=== PATIENT | female | born 1945 | race Caucasian/White ===

== ENCOUNTER → 2016-10-05 | Day surgery (SDC) | payer OTHER ==
[~2016-10-05] MED LIST: ANCEF VIAL 1 GM ONE; BENADRYL INJ 50 MG VIAL IVP PRN; DILAUDID INJ IVP PRN; DIPRIVAN VIAL ONE; FENTANYL INJ 250 mcg ONE; LR 1000 ML IV 1,000 ML IV ONE; MARCAINE 0.25% WITH EPI IJ ONE; NEOSTIGMINE INJ ONE; NORCURON INJ 10 MG VIAL ONE; NORMODYNE INJ 100 MG VIAL ONE; NS 50 ML IV + SPIKE MINIBAG* 50 ML IV ONE; PERCOCET TAB 5/325 MG PO PRN; PHENERGAN INJ 25 MG IVP PRN; QUELICIN (OR ANECTINE) ONE; REGLAN INJ 10 MG VIAL IVP PRN; REGLAN INJ 10 MG VIAL ONE; ROBINUL ONE; SUPRANE IN ONE; VERSED ONE; XYLOCAINE 1 % (PLAIN) ONE; XYLOCAINE 2 % (PLAIN) ONE; ZOFRAN INJ 4 MG VIAL IVP PRN; ZOFRAN INJ 4 MG VIAL ONE
[2016-10-05 13:17] VITALS: BP 145/73
== END ==
LOC: SURG1 08:10
PROVIDERS: ATTEND Student in an Organized Health Care Education/Training Program
PROC: 0FT44ZZ Resection of Gallbladder, Percutaneous Endoscopic Approach (ICD-10-PCS; principal; 2016-10-05 09:40)
DX: K82.8 Other specified diseases of gallbladder (principal)
CPT/HCPCS: 99100; A4216; A4222; S0020; J0330; J0690; J2001; J2250; J2405; J2710; J2765; J3010; J3490; J7120

== ENCOUNTER → 2017-02-27 | Outpatient (CLI) | payer OTHER ==
[2016-10-05 13:17] VITALS: BP 145/73
[2017-02-27 09:40] LABS: CREATININE 0.92 mg/dL (0.55-1.02)
--- NOTE | 2017-02-28 07:50 | MRI ---
MRI BRAIN WITHOUT AND WITH CONTRAST CLINICAL HISTORY: 71-year-old female with headaches and family history of strokes. COMPARISON: None. TECHNIQUE: Multiplanar, multisequence MR images of the brain were obtained prior to and following th e uneventful intravenous administration of 14 mL Omniscan. FINDINGS: There is no evidence of diffusion restriction. The craniocervical junction is normal. Partially empty sella Pituitary and optic nerve complex are otherwise normal. Multifocal confluent and punctate T2 F LAIR signal hyperintensities are present within the periventricular/supraventricular and juxta cortic al/subcortical white matter and within the bilateral [place] that are nonspecific in appearance but most likely to represent microvascular white matter ischemic changes. Normal signal characteristics and m orphology are demonstrated within the cerebral cortex, subcortical white matter, corpus callosum, cesar p espinoza nuclei, brainstem and cerebellum. The major vascular channels opacify normally and the major v ascular flow voids, to include the dural venous sinuses, are intact. Age advanced cortical volume los s is present, with commensurate sulcal and ventricular prominence. The basilar cisterns are normal. T here is no evidence of abnormal intracranial enhancement. Bilateral lens implants. The orbits and globes are otherwise within normal limits. Trace mucosal thic kening within the ethmoid labyrinth and right maxillary sinus with modest mucosal thickening of the l eft maxillary sinus. IMPRESSION: 1. No acute ischemic or hemorrhagic insult. 2. Chronic microvascular white matter ischemic insult with associated volume loss. 3. Pattern of mucosal thickening of the sinuses as described, correlate for sinusitis. Reported By:
--- NOTE | 2017-02-28 07:53 | MRI ---
MRA HEAD WITHOUT CONTRAST CLINICAL HISTORY: 71-year-old female with family history of strokes with headaches. COMPARISONS: None. TECHNIQUE: 3-D time of flight magnetic resonance angiographic images of the [place] were obt ained and presented as maximum intensity projection images in rotating format. FINDINGS: The vertebral arteries are codominant. Bilateral PICA are present. The basilar artery is normal in ap pearance and gives off normal bilateral AICA superior cerebellar and posterior cerebral arteries. The internal carotid arteries are normal from the distal cervical segments to the carotid terminus. Smal l caliber right and moderate caliber left posterior communicating arteries are present. The middle an d anterior cerebral arteries are normal in course and caliber. There is a small caliber anterior comm unicating artery. IMPRESSION: No aneurysm, high-grade stenosis, complete occlusion, dissection or vascular malformation. Reported By:
== END | disposition home or self-care (01) ==
LOC: RAD 09:13
PROVIDERS: ATTEND Internal Medicine
DX: Z82.3 Family history of stroke (principal); R51 Headache; I67.1 Cerebral aneurysm, nonruptured; H53.8 Other visual disturbances; I65.01 Occlusion and stenosis of right vertebral artery
CPT/HCPCS: 36415; 70544; 70553; 82565; 84520

== ENCOUNTER → 2017-05-23 | Outpatient (CLI) | payer OTHER ==
[2016-10-05 13:17] VITALS: BP 145/73
--- NOTE | 2017-05-25 13:51 | MG ---
HISTORY: SCREENING Comparison: Multiple priors dating back to 2007 FINDINGS: Bilateral CC and MLO projections of the right and left breast were obtained utilizing full field and push back technique. Heterogeneously dense fibroglandular tissue is seen to be present without signi ficant interval change. No suspicious architectural distortion, mass or clustered microcalcification s can be observed to suggest malignancy. No skin thickening or nipple retraction is appreciated. N o pathological lymphadenopathy can be identified. Benign-appearing calcifications are noted within th e right and left breast. Bilateral subpectoral silicone implants appear grossly intact. IMPRESSION: NO RADIOGRAPHIC EVIDENCE OF MALIGNANCY. ACR CATEGORY 2 - benign findings. FOLLOW-UP EXAM 1 YEAR. Diagnostic CAD was utilized and reviewed. * 0 (ZERO) - ASSESSMENT INCOMPLETE; ADDITIONAL IMAGING IS NEEDED. * 1/1 (ONE) - NEGATIVE. * 2/II (TWO) - BENIGN FINDINGS. * 3/III (THREE) - PROBABLY BENIGN FINDING; SHORT INTERVAL FOLLOW-UP SUGGESTED. * 4/IV (FOUR) - SUSPICIOUS ABNORMALITY; BIOPSY SHOULD BE CONSIDERED. * 5/V - HIGHLY SUSPICIOUS OF MALIGNANCY; BIOPSY SHOULD BE PERFORMED. A NEGATIVE X-RAY REPORT SHOULD NOT DELAY BIOPSY IF A DOMINANT OR CLINICALLY SUSPICIOUS MASS IS PRESENT; 4 TO 8 PERCENT OF CANCERS ARE NOT IDENTIFIED BY X-RAY. A NEGA TIVE REPORT MAY REINFORCE THE CLINICAL IMPRESSION. ADENOSIS AND DENSE BREASTS MAY OBSCURE AN UNDERLY ING NEOPLASM. Reported By:
== END ==
LOC: RAD 09:16
PROVIDERS: ATTEND Specialist
DX: Z12.31 Encounter for screening mammogram for malignant neoplasm of breast (principal)
CPT/HCPCS: 77067

== ENCOUNTER → 2017-06-22 | Outpatient (CLI) | payer OTHER ==
[2016-10-05 13:17] VITALS: BP 145/73
--- NOTE | 2017-06-22 17:29 | MG ---
HISTORY: Status post fall with right lateral breast pain and bruising Right breast digital diagnostic mammography with CAD. Comparison: Multiple previous exams dating back to 2007 FINDINGS: Implant displaced and non implant displaced CC and MLO projections of the right breast were obtained. Heterogeneously dense fibroglandular tissue is seen to be present without significant interval box ge. No suspicious architectural distortion, mass or clustered microcalcifications can be observed to suggest malignancy. No skin thickening or nipple retraction is appreciated. No pathological lymph adenopathy can be identified. Benign-appearing calcifications are noted. Subpectoral silicone implant s appear grossly intact. IMPRESSION: No mammographic evidence of malignancy. However, given the presence of right lateral larry ast pain, targeted sonography is recommended. ACR CATEGORY 0 - assessment incomplete; additional imaging recommended. Diagnostic CAD was utilized and reviewed. * 0 (ZERO) - ASSESSMENT INCOMPLETE; ADDITIONAL IMAGING IS NEEDED. * 1/1 (ONE) - NEGATIVE. * 2/II (TWO) - BENIGN FINDINGS. * 3/III (THREE) - PROBABLY BENIGN FINDING; SHORT INTERVAL FOLLOW-UP SUGGESTED. * 4/IV (FOUR) - SUSPICIOUS ABNORMALITY; BIOPSY SHOULD BE CONSIDERED. * 5/V - HIGHLY SUSPICIOUS OF MALIGNANCY; BIOPSY SHOULD BE PERFORMED. A NEGATIVE X-RAY REPORT SHOULD NOT DELAY BIOPSY IF A DOMINANT OR CLINICALLY SUSPICIOUS MASS IS PRESENT; 4 TO 8 PERCENT OF CANCERS ARE NOT IDENTIFIED BY X-RAY. A NEGA TIVE REPORT MAY REINFORCE THE CLINICAL IMPRESSION. ADENOSIS AND DENSE BREASTS MAY OBSCURE AN UNDERLY ING NEOPLASM. Reported By:
== END ==
LOC: RAD 15:24
PROVIDERS: ATTEND Specialist
DX: N64.4 Mastodynia (principal)
CPT/HCPCS: 77065

== ENCOUNTER → 2017-06-23 | Outpatient (CLI) | payer OTHER ==
[2016-10-05 13:17] VITALS: BP 145/73
--- NOTE | 2017-06-23 13:26 | US ---
HISTORY: Right lateral breast pain status post fall Study: Right breast ultrasound Comparison: June 22, 2017 Technique: Multiple grayscale images of the right breast were obtained. Findings: Sonographic evaluation of the region of interest was performed from 8-11 o'clock. There are no suspic ious cystic or solid nodules. There are no focal fluid collections to suggest hematoma or abscess. No pathologic lymphadenopathy is identified. IMPRESSION: Negative right breast ultrasound. BI-RADS 1. Negative. Yearly mammographic screening is recommended. * 0 (ZERO) - ASSESSMENT INCOMPLETE; ADDITIONAL IMAGING IS NEEDED. * 1/1 (ONE) - NEGATIVE. * 2/II (TWO) - BENIGN FINDINGS. * 3/III (THREE) - PROBABLY BENIGN FINDING; SHORT INTERVAL FOLLOW-UP SUGGESTED. * 4/IV (FOUR) - SUSPICIOUS ABNORMALITY; BIOPSY SHOULD BE CONSIDERED. * 5/V (FIVE) - HIGHLY SUSPICIOUS OF MALIGNANCY; BIOPSY SHOULD BE PERFORMED. * 6/ (SIX) - KNOWN MALIGNANCY. A NEGATIVE X-RAY REPORT SHOULD NOT DELAY BIOPSY IF A DOMINANT OR CLINICALLY SUSPICIOUS MASS IS PRESENT; 4 TO 8 PERCENT OF CANCERS ARE NOT IDENTIFIED BY X-RAY. A NEGA TIVE REPORT MAY REINFORCE THE CLINICAL IMPRESSION. ADENOSIS AND DENSE BREASTS MAY OBSCURE AN UNDERLY ING NEOPLASM. Reported By:
== END ==
LOC: RAD 12:15
PROVIDERS: ATTEND Specialist
DX: N64.4 Mastodynia (principal); Z91.81 History of falling
CPT/HCPCS: 76642

== ENCOUNTER 2017-08-24 07:12 | Day surgery (SDC) | payer OTHER ==
[2017-08-24] MEDS ORDERED: D5 LR 1000 ML 1,000 ML IV ONE (07:22)
[2017-08-24] MEDS ORDERED: DIPRIVAN VIAL 20 ML ONE (08:03)
[2017-08-24 08:57] VITALS: BP 127/69
== END 2017-08-24 09:00 | disposition home or self-care (01) ==
LOC: SURG1 07:12
PROVIDERS: ATTEND Internal Medicine Gastroenterology
PROC: 0DJ08ZZ Inspection of Upper Intestinal Tract, Via Natural or Artificial Opening Endoscopic (ICD-10-PCS; principal; 2017-08-24 07:30)
PROC: 0DB68ZX Excision of Stomach, Via Natural or Artificial Opening Endoscopic, Diagnostic (ICD-10-PCS; principal; 2017-08-24 07:30)
PROC: 0DB88ZX Excision of Small Intestine, Via Natural or Artificial Opening Endoscopic, Diagnostic (ICD-10-PCS; principal; 2017-08-24 07:30)
DX: R10.13 Epigastric pain (principal); R11.0 Nausea; K21.9 Gastro-esophageal reflux disease without esophagitis; K29.60 Other gastritis without bleeding; K20.8 Other esophagitis
CPT/HCPCS: 99100; A4217; J3490; J7120

== ENCOUNTER 2017-08-31 07:04 | Day surgery (SDC) | payer OTHER ==
[2017-08-31] MEDS ORDERED: D5 LR 1000 ML 1,000 ML IV ONE (07:13)
[2017-08-31] MEDS ORDERED: DIPRIVAN VIAL 20 ML ONE (09:04)
[2017-08-31 10:01] VITALS: BP 129/84
== END 2017-08-31 09:45 | disposition home or self-care (01) ==
LOC: SURG1 07:04
PROVIDERS: ATTEND Internal Medicine Gastroenterology
PROC: 0DJD8ZZ Inspection of Lower Intestinal Tract, Via Natural or Artificial Opening Endoscopic (ICD-10-PCS; principal; 2017-08-31 07:30)
PROC: 0DBN8ZX Excision of Sigmoid Colon, Via Natural or Artificial Opening Endoscopic, Diagnostic (ICD-10-PCS; principal; 2017-08-31 07:30)
DX: R10.31 Right lower quadrant pain (principal); Z86.010 Personal history of colon polyps; K63.5 Polyp of colon; K64.0 First degree hemorrhoids
CPT/HCPCS: 99100; A4217; J3490; J7120